=== PATIENT | male | born 1965 | race Caucasian/White ===

== ENCOUNTER 2018-07-26 21:28 | Emergency (ER) | payer OTHER ==
[2018-07-26 21:48] VITALS: BP 149/62; PULSE 85; TEMP 99.4; BMI 26.1
--- NOTE | 2018-07-26 21:49 | PDOC ---
Rapid Medical Evaluation Time Seen by Provider: 07/26/18 21:46 Medical Evaluation: 07/26/18 21:46 Pt presents to the ED for cough starting today. Pt states he now has expiratory wheezing. Denies fever. Taking Robitussin Exam: Expiratory wheezing Orders: CXR, Labs, Iv Pt to proceed to the ED for further evaluation Discharge Disposition - Diagnosis Cough - Referrals - Patient Instructions - Post Discharge Activity
[2018-07-27] MEDS ORDERED: ALBUTEROL SO4 2.5/IPRATROPIUM 0.5 INH SOL 3 ML VIAL.NEB. NEB PRN (00:03)
--- NOTE | 2018-07-27 00:06 | PDOC ---
*Physical Exam - Vital Signs Last Vital Signs Temp Pulse Resp BP Pulse Ox 99.4 F 85 20 149/62 97 07/26/18 21:45 07/26/18 21:45 07/26/18 21:45 07/26/18 21:45 07/26/18 21:45 ED Treatment Course - LABORATORY CBC & Chemistry Diagram: 07/26/18 00:56 07/26/18 00:56 Medical Decision Making - Medical Decision Making 07/27/18 00:05 Patient seen by the advanced practice provider under my direct supervision. Ancillary testing reviewed as necessary. I agree with plan as outlined by the advanced practice provider. *DC/Admit/Observation/Transfer Diagnosis at time of Disposition: Pneumonia Qualifiers: Pneumonia type: due to unspecified organism Laterality: right Lung location: upper lobe of lung Qualified Code(s): J18.1 - Lobar pneumonia, unspecified organism - Discharge Dispostion Disposition: HOME - Prescriptions Prescriptions: Albuterol 0.083% Nebulizer Flower [Ventolin 0.083% Nebulizer Soln -] 1 neb NEB Q4H #30 vial Azithromycin [Zithromax 250mg Tablets -] 250 mg PO DAILY #4 tablet Nebulizer [Aeroeclipse II] 1 each MC QID PRN #1 each PRN Reason: Wheezing - Referrals Referrals: Baldemar Brandon MD [Primary Care Provider] - - Patient Instructions Printed Discharge Instructions: Pneumonia-Adult Additional Instructions: take azithromycin as prescribed. use albuterol very 4 hours as needed for hweezing use tylenol/ ibuprofen every 6 hours as needed for fever Additional Instructions: * Please call your personal physician to report your Emergency Department visit and to report your progress, if any. * If there is no improvement in symptoms in 2 days call your physician. * Return to the Emergency Department for any worsening symptoms. - Post Discharge Activity Forms/Work/School Notes: Back to Work
[2018-07-27] MEDS ORDERED: ALBUTEROL SO4 2.5/IPRATROPIUM 0.5 INH SOL 3 ML VIAL.NEB. NEB ONE (00:28)
[2018-07-27 01:10] LABS: BASO % 1.4 % (0-2.0); HEMATOCRIT 34.9 % (35.4-49); HEMOGLOBIN 12.1 GM/dL (11.7-16.9); LYMPH % 20.3 % (8-40); MCH 29.4 pg (25.7-33.7); MCHC 34.8 g/dl (32.0-35.9); MEAN CELL VOLUME 84.4 fl (80-96); MEAN PLT VOLUME 10.2 fl (7.5-11.1); MONO % 6.7 % (3.8-10.2); NEUT % 68.6 % (42.8-82.8); PLATELET COUNT 429 K/MM3 (134-434); RBC 4.13 M/mm3 (4.00-5.60); RDW 14.8 % (11.9-15.9); WHITE BLOOD COUNT 14.1 K/mm3 (4.0-10.0)
[2018-07-27 01:30] LABS: ALBUMIN 4.1 g/dl (3.4-5.0); ALK PHOS 60 U/L (45-117); ANION GAP 5 MMOL/L (8-16); BILIRUBIN,TOTAL 0.4 mg/dL (0.2-1); BLOOD UREA NITROGEN 22 mg/dL (7-18); CALCIUM 8.6 mg/dL (8.5-10.1); CHLORIDE 102 mmol/L (98-107); CO2 31 mmol/L (21-32); GLUCOSE,RANDOM 160 mg/dL (74-106); POTASSIUM 4.4 mmol/L (3.5-5.1); SGOT/AST 21 U/L (15-37); SGPT/ALT 26 U/L (13-61); SODIUM 138 mmol/L (136-145); TOT PROT 8.2 g/dl (6.4-8.2)
[2018-07-27 01:32] LABS: N-TERMINAL BNP 52.6 pg/ml (5-125)
[2018-07-27] MEDS ORDERED: CEFTRIAXONE 1 GM in DEXTROSE 5%-WATER - 100 ML IVPB ONE (02:47)
[2018-07-27] MEDS ORDERED: AZITHROMYCIN IVPB 500 MG in DEXTROSE 5%-WATER - 250 ML IVPB ONE (02:47)
[2018-07-27] MEDS ORDERED: IBUPROFEN 400 MG TABLET (FP) PO ONE ×2 (02:49→02:58)
[2018-07-27] MEDS ORDERED: AZITHROMYCIN 250 MG TABLET PO ONE (02:56)
[2018-07-27] MEDS ORDERED: CEFTRIAXONE 1 GM/50 ML BAG ONE (02:58)
[2018-07-27] MEDS ORDERED: AZITHROMYCIN 250 MG TABLET ONE (02:58)
--- NOTE | 2018-07-27 03:02 | PDOC ---
History of Present Illness - General Chief Complaint: Respiratory Stated Complaint: COUGH Time Seen by Provider: 07/26/18 21:46 History Source: Patient - History of Present Illness Initial Comments: 07/27/18 03:00 53 year old male with cough, wheezing and fever patient reports that he had URI symptoms last week. reports TMAX 100.4 at home. denies chest pain, dizziness, NVD, abdominal pain PMHX: pancreatic CA Diabetes Past History - Past Medical History Allergies/Adverse Reactions: Allergies Allergy/AdvReac Type Severity Reaction Status Date / Time No Known Allergies Allergy Verified 07/27/18 00:37 Home Medications: Ambulatory Orders Albuterol 0.083% Nebulizer Flower [Ventolin 0.083% Nebulizer Soln -] 1 neb NEB Q4H #30 vial 07/27/18 Azithromycin [Zithromax 250mg Tablets -] 250 mg PO DAILY #4 tablet 07/27/18 Nebulizer [Aeroeclipse II] 1 each MC QID PRN #1 each 07/27/18 - Suicide/Smoking/Psychosocial Hx Smoking History: Former smoker Have you smoked in the past 12 months: No If you are a former smoker, when did you quit?: 17 years ago Information on smoking cessation initiated: No Hx Alcohol Use: No Drug/Substance Use Hx: No Review of Systems - Review of Systems Able to Perform ROS?: Yes Is the patient limited Portuguese proficient: No Constitutional: Yes: Fever Respiratory: Yes: Cough, Shortness of Breath, Wheezing Cardiac (ROS): No: Symptoms Reported, See HPI, Chest Pain, Edema, Irregular Heart Rate, Lightheadedness, Palpitations, Syncope, Chest Tightness, Other ABD/GI: No: Symptoms Reported, See HPI, Abdominal Distended, Abd. Pain w/ defecation, Blood Streaked Bowels, Constipated, Diarrhea, Difficulty Swallowing , Nausea, Poor Appetite, Poor Fluid Intake, Rectal Bleeding, Vomiting, Indigestion, Abdominal cramping, Tarry Stools, Other : No: Symptoms Reported, See HPI, Burning, Dysuria, Discharge, Frequency, Flank Pain, Hematuria, Incontinence, Pain, Urgency, Testicular Mass, Testicular Swelling, Lesions, Testicular Pain, Other *Physical Exam - Vital Signs Last Vital Signs Temp Pulse Resp BP Pulse Ox 99.4 F 85 20 149/62 97 07/26/18 21:45 07/26/18 21:45 07/26/18 21:45 07/26/18 21:45 07/26/18 21:45 - Physical Exam General Appearance: Yes: Appropriately Dressed Respiratory/Chest: positive: Wheezing Cardiovascular: positive: Regular Rate Gastrointestinal/Abdominal: positive: Normal Bowel Sounds. negative: Soft Extremity: positive: Normal Capillary Refill, Normal Inspection, Normal Range of Motion Integumentary: positive: Normal Color, Dry, Warm Moderate Sedation - Procedure Monitoring Vital Signs: Procedure Monitoring Vital Signs Temperature 99.4 F 07/26/18 21:45 Pulse Rate 85 07/26/18 21:45 Respiratory Rate 20 07/26/18 21:45 Blood Pressure 149/62 07/26/18 21:45 O2 Sat by Pulse Oximetry (%) 97 07/26/18 21:45 ED Treatment Course - LABORATORY CBC & Chemistry Diagram: 07/26/18 00:56 07/26/18 00:56 - ADDITIONAL ORDERS Additional order review: Laboratory Results 07/27/18 07/27/18 07/26/18 00:56 00:56 00:56 Sodium 138 Potassium 4.4 Chloride 102 Carbon Dioxide 31 Anion Gap 5 L BUN 22 H Creatinine 1.0 Creat Clearance w eGFR > 60 Random Glucose 160 H Lactic Acid 2.0 Calcium 8.6 Total Bilirubin 0.4 AST 21 ALT 26 Alkaline Phosphatase 60 Creatine Kinase 317 H Creatine Kinase Index 0.5 CK-MB (CK-2) 1.8 Troponin I < 0.02 B-Natriuretic Peptide 52.6 Total Protein 8.2 Albumin 4.1 07/26/18 00:56 RBC 4.13 MCV 84.4 MCHC 34.8 RDW 14.8 MPV 10.2 D Neutrophils % 68.6 D Lymphocytes % 20.3 D Monocytes % 6.7 Eosinophils % 3.0 Basophils % 1.4 - RADIOLOGY Chest X-Ray Result: Other (rul/ rml PNEUMONIA) Progress Note - Progress Note Progress Note: A: pneumonia P: labs blood culture xray duoneb azithromycin Medical Decision Making - Medical Decision Making 07/27/18 02:56 i offered admission for pneumonia. PATIENT Refused and reports that he has a a ct scan at [facility] that cannot be missed. will d/ c home strict return precautions. close pcp follow up recommended 07/27/18 03:17 *DC/Admit/Observation/Transfer Diagnosis at time of Disposition: Pneumonia Qualifiers: Pneumonia type: due to unspecified organism Laterality: right Lung location: upper lobe of lung Qualified Code(s): J18.1 - Lobar pneumonia, unspecified organism - Discharge Dispostion Disposition: HOME - Prescriptions Prescriptions: Albuterol 0.083% Nebulizer Flower [Ventolin 0.083% Nebulizer Soln -] 1 neb NEB Q4H #30 vial Azithromycin [Zithromax 250mg Tablets -] 250 mg PO DAILY #4 tablet Nebulizer [Aeroeclipse II] 1 each MC QID PRN #1 each PRN Reason: Wheezing - Referrals Referrals: Baldemar Brandon MD [Primary Care Provider] - - Patient Instructions Printed Discharge Instructions: Pneumonia-Adult Additional Instructions: take azithromycin as prescribed. use albuterol very 4 hours as needed for hweezing use tylenol/ ibuprofen every 6 hours as needed for fever Additional Instructions: * Please call your personal physician to report your Emergency Department visit and to report your progress, if any. * If there is no improvement in symptoms in 2 days call your physician. * Return to the Emergency Department for any worsening symptoms. - Post Discharge Activity Forms/Work/School Notes: Back to Work
--- NOTE | 2018-07-27 11:38 | EKG ---
Test Reason : Blood Pressure : / mmHG Vent. Rate : 101 BPM Atrial Rate : 101 BPM P-R Int : 144 ms QRS Dur : 090 ms QT Int : 340 ms P-R-T Axes : 070 040 055 degrees QTc Int : 440 ms SINUS TACHYCARDIA POSSIBLE LEFT ATRIAL ENLARGEMENT NONSPECIFIC ST ABNORMALITY ABNORMAL ECG NO PREVIOUS ECGS AVAILABLE Confirmed by AC PARHAM, DHIRAJ ([id number]) on 07/27/2018 11:37:57 AM Referred By: Confirmed By:DHIRAJ SHEN MD
== END 2018-07-27 03:38 | disposition home or self-care (01) ==
LOC: JER 21:28
PROC: 3E03329 Introduction of Other Anti-infective into Peripheral Vein, Percutaneous Approach (ICD-10-PCS; principal; 2018-07-26)
PROC: 3E0F7GC Introduction of Other Therapeutic Substance into Respiratory Tract, Via Natural or Artificial Opening (ICD-10-PCS; 2018-07-26)
DX: J18.1 Lobar pneumonia, unspecified organism (principal); E11.9 Type 2 diabetes mellitus without complications; Z85.07 Personal history of malignant neoplasm of pancreas
CPT/HCPCS: 36415; 71046-TC-FY; 80053; 82550; 82553; 83605; 83880; 84484; 85025; 87040; 87804; 93005; 93010; 94640; 96365; 99282-25; 99283-25

== ENCOUNTER 2023-05-04 11:00 | Emergency (ER) | payer OTHER ==
[2023-05-04 11:07] VITALS: BP 133/57; PULSE 82; RESP 16; TEMP 98.2; BMI 22.8
[2023-05-04] MEDS ORDERED: ACETAMINOPHEN 500 MG TABLET (FP) PO ONE (13:54)
[2023-05-04] MEDS ORDERED: ACETAMINOPHEN 500 MG TABLET (FP) ONE (13:56)
== END 2023-05-04 14:05 | disposition home or self-care (01) ==
LOC: JERFT 11:00
DX: M54.50 Low back pain, unspecified (principal); M25.521 Pain in right elbow; S42.401A Unspecified fracture of lower end of right humerus, initial encounter for closed fracture; W01.0XXA Fall on same level from slipping, tripping and stumbling without subsequent striking against object, initial encounter
CPT/HCPCS: 72100-TC-FY; 73070-TC-RT-FY; 99283-25